=== PATIENT | male | born 1995 | race Caucasian/White ===

== ENCOUNTER 2018-12-05 23:25 | Emergency (ER) | payer SELFPAY ==
[~2018-12-05] VITALS: Ht 172.7 cm; Wt 69.4 kg
[2018-12-05 23:51] VITALS: Ht 172.7 cm; Wt 69.4 kg
[2018-12-06 00:46] VITALS: BP 147/69
== END 2018-12-06 00:46 | disposition home or self-care (01) ==
LOC: ED 23:25
DX: B97.89 Other viral agents as the cause of diseases classified elsewhere (principal); M79.10 Myalgia, unspecified site; R50.9 Fever, unspecified; J02.9 Acute pharyngitis, unspecified